=== PATIENT | female | born 1985 | race African-American/Black ===

== ENCOUNTER 2018-07-08 17:54 | Emergency (ER) | payer OTHER ==
[~2018-07-08] VITALS: Ht 170.2 cm; Wt 57.6 kg
[2018-07-08] MEDS ORDERED: AUGMENTIN 875-1 EACH PO (19:03)
[2018-07-08] MEDS ORDERED: NORCO 5-325 TA1 EACH PO (19:03)
[2018-07-08 19:29] VITALS: BP 119/60
== END 2018-07-08 19:47 | disposition home or self-care (01) ==
LOC: ER 17:54
DX: S61.411A Laceration without foreign body of right hand, initial encounter (principal); M79.642 Pain in left hand; W25.XXXA Contact with sharp glass, initial encounter; Y93.89 Activity, other specified; Y92.89 Other specified places as the place of occurrence of the external cause; Y99.8 Other external cause status

== ENCOUNTER 2018-08-04 14:29 | Emergency (ER) | payer OTHER ==
[~2018-08-04] VITALS: Ht 170.2 cm; Wt 59.0 kg
[~2018-08-04 14:29] MED LIST: AUGMENTIN 875-1 EACH PO; NORCO 5-325 TA1 EACH PO
[2018-08-04 15:00] VITALS: BP 114/44
== END 2018-08-04 15:01 | disposition home or self-care (01) ==
LOC: ER 14:29
DX: S61.411D Laceration without foreign body of right hand, subsequent encounter (principal); X58.XXXD Exposure to other specified factors, subsequent encounter